=== PATIENT | female | born 1960 | race Caucasian/White ===

== ENCOUNTER 2024-02-22 08:39 | Inpatient (IN) | payer MEDICARE, MEDICAID ==
[~2024-02-22] VITALS: Ht 157.5 cm; Wt 49.1 kg
[~2024-02-22 08:39] MED LIST: QUET100T38; VENL25TA40
[2024-02-22 09:06] LABS: Urine Bacteria None Seen /hpf (None Seen)
[2024-02-22 09:10] VITALS: PULSE 84; RESP 16; O2SAT 97
[2024-02-22 09:26] LABS: Urine Blood Negative /uL (Negative); Urine Clarity Clear (Clear); Urine Color Colorless (Yellow); Urine Protein, UAD Negative (Negative); Urine Specific Gravity 1.002 (1.001-1.035); Urine Urobilinogen Normal (Negative); Urine WBC 3 /hpf (0 - 5); Urine pH 5.5 (5.0-9.0)
[2024-02-22 09:30] LABS: Alanine Aminotransferase 20 U/L (7-40); Albumin 4.9 g/dL (3.2-4.8); Alkaline Phosphatase 82 U/L (46-116); Anion Gap 6 (5-15); Aspartate Aminotransferase 17 U/L (13-40); BUN/Creatinine Ratio 5.4 (10.0-20.0); Bilirubin, Total 0.4 mg/dL (0.2-1.0); Blood Urea Nitrogen < 5 mg/dL (9-23); Carbon Dioxide 29 mmol/L (20-30); Chloride 100 mmol/L (98-107); Glucose 114 mg/dL (74-106); Potassium 3.7 mmol/L (3.5-5.1); Sodium 135 mmol/L (136-145); Total Protein 7.2 g/dL (5.7-8.2)
[2024-02-22 09:41] LABS: Basophils # (auto) 0.1 10 ^3/uL (0-0.2); Basophils % (auto) 0.6 % (0.0-2.0); Eosinophils # (auto) 0 10 ^3/uL (0-0.8); Eosinophils % (auto) 0.5 % (0.0-7.0); Hematocrit 37.8 % (36.0-46.0); Lymphocytes # (auto) 1.4 10 ^3/uL (0.4-5.4); Lymphocytes % (auto) 13.6 % (10.0-50.0); Mean Corpuscular Hemoglobin 29.7 pg (28.0-32.0); Mean Corpuscular Hgb Conc. 34.3 g/dL (32.0-36.0); Mean Corpuscular Volume 86.5 fL (80.0-100.0); Monocytes # (auto) 0.7 10 ^3/uL (0-1.3); Monocytes % (auto) 6.9 % (0.0-12.0); Neutrophils # (auto) 8.2 10 ^3/uL (1.6-8.6); Neutrophils % (auto) 78.4 % (37.0-80.0); Platelet Count (auto) 623 10^3/uL (140-450); Red Blood Cells 4.37 10^6/uL (4.0-5.20); Red Cell Distribution Width 13.4 % (11.8-14.3); White Blood Cell 10.4 10^3/uL (4.4-10.8)
[2024-02-22] MEDS: SODIUM CHLORIDE 0.9% 1,000 ML IV ONE ×2 (10:29→12:00)
[2024-02-22] MEDS ORDERED: ONDANSETRON HCL 4 MG/2 ML VIAL IV PRN (15:15)
[2024-02-22] MEDS: SODIUM CHLORIDE 0.9% 1,000 ML IV SCH (15:15)
[2024-02-22] MEDS ORDERED: HYDROcodone-ACET 5/325MG TAB PO PRN (15:15)
[2024-02-22] MEDS ORDERED: BRIV1TAB4 PO (15:49)
[2024-02-22] MEDS ORDERED: LEVO75TA6 PO (15:49)
[2024-02-22] MEDS ORDERED: ROSU20TA56 PO (15:49)
[2024-02-22] MEDS ORDERED: ACETAMINOPHEN 325 MG TAB PO PRN (16:00)
[2024-02-22] MEDS: metroNIDAZOLE 500MG/100ML 100 ML IV ONE (17:01)
[2024-02-22 17:50] VITALS: BP 146/68; PULSE 84; RESP 20; TEMP 98; O2SAT 100
[2024-02-22] MEDS: BRIVARACETAM 50 MG PO SCH (22:00)
[2024-02-22] MEDS: metroNIDAZOLE 500MG/100ML 100 ML IV SCH (22:15)
[2024-02-22] MEDS: ATORVASTATIN 20 MG TAB PO SCH (22:16)
[2024-02-23] VITALS (8 sets, daily range): BP systolic 111–131; BP diastolic 43–66; PULSE 72–88; RESP 15–100; TEMP 97.5–98.2; O2SAT 91–100
[2024-02-23] MEDS: LEVOTHYROXINE SODIUM 25 MCG TAB PO SCH (05:05)
[2024-02-23 07:24] LABS: Basophils # (auto) 0 10 ^3/uL (0-0.2); Eosinophils # (auto) 0.1 10 ^3/uL (0-0.8); Lymphocytes # (auto) 1.3 10 ^3/uL (0.4-5.4); Monocytes # (auto) 0.7 10 ^3/uL (0-1.3); Neutrophils # (auto) 4.9 10 ^3/uL (1.6-8.6); Neutrophils % (auto) 69.6 % (37.0-80.0); White Blood Cell 7.1 10^3/uL (4.4-10.8)
[2024-02-23 07:26] LABS: Anion Gap 9 (5-15); Basophils % (auto) 0.6 % (0.0-2.0); Carbon Dioxide 22 mmol/L (20-30); Eosinophils % (auto) 0.8 % (0.0-7.0); Hematocrit 31.2 % (36.0-46.0); Hemoglobin 10.9 g/dL (12.2-16.2); Lymphocytes % (auto) 18.9 % (10.0-50.0); Mean Corpuscular Hgb Conc. 34.9 g/dL (32.0-36.0); Mean Corpuscular Volume 85.9 fL (80.0-100.0); Monocytes % (auto) 10.1 % (0.0-12.0); Nucleated Red Blood Cells % 0.1 %; Platelet Count (auto) 492 10^3/uL (140-450); Potassium 3.3 mmol/L (3.5-5.1); Red Blood Cells 3.64 10^6/uL (4.0-5.20); Red Cell Distribution Width 13.3 % (11.8-14.3)
[2024-02-23 07:32] LABS: Glucose 95 mg/dL (74-106)
[2024-02-23 08:27] LABS: BUN/Creatinine Ratio 6.9 (10.0-20.0); Blood Urea Nitrogen < 5 mg/dL (9-23); Chloride 115 mmol/L (98-107); Sodium 146 mmol/L (136-145)
[2024-02-23] MEDS: LOPERAMIDE HCL 2 MG CAP/TAB PO ONE (12:45)
[2024-02-23] MEDS: LOPERAMIDE HCL 2 MG CAP/TAB PO PRN (13:15)
[2024-02-23] MEDS ORDERED: LACTATED RINGER'S 1,000 ML IV SCH (13:30)
[2024-02-23] MEDS: LACTATED RINGER'S 1,000 ML IV SCH (15:10)
[2024-02-24 08:00] VITALS: PULSE 94; RESP 20; O2SAT 97
[2024-02-24 09:00] VITALS: BP 136/86; PULSE 94; RESP 20; TEMP 97.7; O2SAT 97
[2024-02-24 12:35] VITALS: BP 136/86; PULSE 94; RESP 20; TEMP 97.7; O2SAT 97
== END 2024-02-24 13:50 | disposition home or self-care (01) | DRG 372 ==
LOC: ER 08:39 → OVERFLOW 15:36 → EAST 17:51
PROVIDERS: ADMIT Registered Nurse General Practice; ATTEND Registered Nurse General Practice
DX: A04.72 Enterocolitis due to Clostridium difficile, not specified as recurrent (principal); Z68.1 Body mass index [BMI] 19.9 or less, adult; D75.839 Thrombocytosis, unspecified; E03.9 Hypothyroidism, unspecified; E78.00 Pure hypercholesterolemia, unspecified; E86.0 Dehydration; K04.7 Periapical abscess without sinus; R56.9 Unspecified convulsions; Z88.8 Allergy status to other drugs, medicaments and biological substances; Z80.8 Family history of malignant neoplasm of other organs or systems; Z82.0 Family history of epilepsy and other diseases of the nervous system; Z82.49 Family history of ischemic heart disease and other diseases of the circulatory system
CPT/HCPCS: 36415; 74176; 80048; 80053; 81001; 82270; 85025; 87493; 96361; 96365; G0378; J3490

== ENCOUNTER → 2024-03-18 | Outpatient (CLI) | payer MEDICARE, MEDICAID ==
[~2024-03-18] MED LIST changes: +BRIV1TAB4 PO; +LEVO75TA6 PO; +ROSU20TA56 PO
== END | disposition home or self-care (01) ==
LOC: LAB 16:14
PROVIDERS: ATTEND Internal Medicine
DX: E03.9 Hypothyroidism, unspecified (principal)
CPT/HCPCS: 85048; 87045; 87427